=== PATIENT | female | born 2000 | race African-American/Black ===

== ENCOUNTER 2025-02-28 12:08 | Emergency (ER) | payer SELFPAY ==
--- OUTSIDE RECORDS SUMMARY | 2025-02-28 12:10 | XMS_ITS | Continuity of Care Document ---
Author Organization [facility] Address [address] [place] [phone] Phone Care Team Providers Care Composing Machine Operator Name Role Phone Faisal CRAMER/Annette NORRIS Unavailable Unavailable Allergies, Adverse Reactions, Alerts Substance Reaction Status Criticality No Known allergies Medications Medication Instructions Dosage Effective Dates (start - stop) Status Comments acetaminophen 160 mg/5 mL Elixir take 10 milliliter (320MG) by oral route every 6 hours as needed 320 MG - Active ibuprofen 100 mg/5 mL Oral Susp take 10 milliliter (200MG) by oral route every 6 hours as needed with food 200 MG - Active mls Procedures Procedure Date Medical Patient Not Seen Advance Directives Directive Yes / No Effective Date File Name No Information Encounters Encounter Description Practice Location Reason(s) For Visit Diagnoses Date Provider [facility] Blake [facility], [address] [place] [address], [id number], tel:[phone] [facility] No Information Faisal Bryant. [address] [place] [address], [id number], [place]. tel:[phone] Carter Blake [facility], [address] [place] [address], [id number], tel:[phone] [facility] sore throat (chief complaint) Streptococcal sore throat Adri Plascencia. [address] [place] [address], [id number], [place]. tel:[phone] Carter Blake [facility], [address] [place] [address], [id number], [place] tel:[phone] [facility] follow up labs/diagno stic testing (chief complaint) Lump or mass in breastACUTE PAIN NEC Faisal Bryant. [address] [place] [address], [id number], [place]. tel:[phone] Carter Blake [facility], [address] [place] [address], [id number], [place] tel:[phone] [facility] knot on chest (chief complaint) Lump or mass in breast Mannie Astudillo . [address] [place] [address], [id number], [place]. tel:[phone] Family History Family Member Type Diagnosis Age At Onset Mother Problem (finding) asthma Problem (finding) Family history of hyper tension Sister Problem (finding) asthma Problem (finding) Family history of Diabe char mellitus Payers Payer name Insurance type Covered green party ID Authoriza tion(s) No Information Social History Type Description Quantity Date Captured Comments Sex Female Smoking Status No Information Chief Complaint And Reason For Visit No Information History Of Present Illness Encounter Date Complaint History Of Prese nt Illness No Information Instructions Date Instruction Additional Infor sarah Order consults Call if symptoms persist Assessments Type Assessment Date No Information
--- OUTSIDE RECORDS SUMMARY | 2025-02-28 12:10 | XMS_ITS | Clinical Summary ---
Author Organization [facility] Address [address] [place] [id number] Care Team Providers Care Metal Miner Name Role Phone None, Provider MD Primary Care Provider Unavaila ble Allergies No known active allergies Medications buPROPion XL 150 MG 24 hr tablet Take 150 mg by mouth daily. 05/23/2021 Active Vit-Fe Fumarate-FA ( VITAMIN) 27-0.8 MG Tab Take 1 tablet by mouth daily. 90 tablet 3 09/09/2021 Active Active Problems Comments Yes No known active problems Family History Medical History Relation Comments Asthma Father Asthma Mother Relation Status Comments Father Alive Mother Alive Social History Tobacco Use Types Packs/Day Years Used Date Smoking Tobacco: Never Smokeless Tobacco: Never Alcohol Use Standard Drinks/Week Comments Not Currently 0 (1 standard drink = 0.6 oz pur e alcohol) Comments Yes Sex and Gender Information Value Date Recorded Sex Assigned at Not on file Legal Sex Female 6:47 PM CDT Gender Identity Not on file Sexual Orientation Not on file Last Filed Vital Signs Vital Sign Reading Time Taken Comments Blood Pressure 124/61 09/11/2021 12:10 PM PROMOTIONS COORDINATOR Pulse 58 09/11/2021 12:10 PM PROMOTIONS COORDINATOR Temperature 37.3 C (99.2 F) 09/11/2021 12:10 PM PROMOTIONS COORDINATOR Respiratory Rate 18 09/11/2021 12:10 PM PROMOTIONS COORDINATOR Oxygen Saturation 100% 09/11/2021 12:10 PM PROMOTIONS COORDINATOR Inhaled Oxygen Concentration - - Weight 57 kg (125 lb 10.6 oz) 09/08/2021 8:38 PM PROMOTIONS COORDINATOR Height 168.9 cm (5' 6.5 ) 09/08/2021 8:38 PM PROMOTIONS COORDINATOR Body Mass Index 19.98 09/08/2021 8:38 PM PROMOTIONS COORDINATOR Plan of Treatment Health Maintenance Due Date Last Done Comments Cervical Cancer Screening Pap Smear (Age 21 to 29) Every 3 Years 2001 Cervical Cancer Screening 2001 Annual Physical 2004 DTaP, Tdap and Td Vaccines (5 - Tdap) 2012 04/13/2003, 03/22/2002, 01/20/2002, Additional history exists Meningococcal B Vaccine (1 of 2 - Standard) 2017 Hepatitis C 2019 Hepatitis B Vaccines (1 of 3 - 19+ 3-dose series) 2020 COVID-19 Vaccine (1 - 2023-25 season) 2024 RSV Immunization or 60+ Years (1 - 1-dose 75+ series) 2076 HPV Vaccines Completed 07/11/2015, 06/20, 06/01/2013 Pneumococcal Vaccine: Pediatrics (0 to 5 Years) and At-Risk Patients (6 to 49 Years) Aged Out 11/07/2015, 09/05/2015 No longer eligibl e based on patient's age to complete this topic Meningococcal Vaccine Completed 01/28/2018 RSV Immunizations Under 20 Months Aged Out No longer eligible based on patient's age to complete this topic Insurance MERIDIAN MERIDIAN Care Teams Metal Miner Relationship Specialty Start Date End Date None, Provider, PCP - General 07/07/21
[2025-02-28 13:28] VITALS: BP 132/77; PULSE 56; RESP 18; TEMP 36.7; O2SAT 100
--- NOTE | 2025-02-28 13:31 | ECG_ITS ---
Test Date: 2025-02-28 15:05:51 Measurements Intervals [place] Rate: 48 P: 48 [place]: 138 QRS: 63 QRSD: 88 T: 36 QT: 451 QTc: 406 Interpretive Statements SINUS BRADYCARDIA NONSPECIFIC T WAVE ABNORMALITY No previous ECG available for comparison Electronically Signed On 02-28-2025 15:09:29 CDT by Manny Calix M.D.
--- NOTE | 2025-02-28 13:31 | ED_ITS ---
HPI - Female Genitourinary General Chief complaint: Vaginal Bleeding <Tiara Arzola PA-C - Last Filed: 02/28/25 13:33> Stated complaint: heavy vaginal bleeding <Tiara Arzola PA-C - Last Filed: 02/28/25 13:33> Time Seen by Provider: 02/28/25 14:17 <Tiara Arzola PA-C - Last Filed: 02/28/25 13:33> Focused HPI: 24-year-old female presents emergency department for abnormal uterine bleeding for the past 2 days. Patient states the 1st day of her last period was 02/17/2025 and lasted until 02/21/2025. She states her period was normal and on time. She then stopped bleeding and began bleeding again 2 days ago which is abnormal. Last night around 7:00 p.m. she started having increase in bleeding and has had a change her pad /tampon twice every hours since. She is now feeling lightheaded when she goes from sitting to standing position. She reports lower abdominal cramping. Denies history of irregular periods, possibility of , fever, vomiting, vaginal discharge or concern for STDs. She was approximately 2-3 years ago and had a miscarriage. Her OBGYN is Dr. Ro. GENERAL: Well-appearing, well-nourished, and in no acute distress. HEAD: Normocephalic, atraumatic. CHEST: Clear to auscultation. ?No respiratory distress. HEART: Regular rate and rhythm.? NEURO: ?Alert and oriented x3. Patient screened in triage and initial orders placed.? ?Additional care and disposition to be based upon?diagnostic testing and treatment. <Tiara Arzola PA-C - Last Filed: 02/28/25 13:33> History of Present Illness HPI Narrative: Agree with HPI. Reports sexually active with another female. Last activity several days ago. No penetration that could have caused laceration or other injury. Would like to have STI testing performed. No discharge. <Adalberto Coreas MD - Last Filed: 02/28/25 16:07> Related Data Allergies/Adverse reactions: Allergies Allergy/AdvReac Type Severity Reaction Status Date / Time No Known Allergies Allergy Unverified 10/29/16 08:29 <Tiara Arzola PA-C - Last Filed: 02/28/25 13:33> Review of Systems 2 Review of Systems: All systems reviewed & are unremarkable except as noted in HPI and below <Adalbetro Coreas MD - Last Filed: 02/28/25 16:07> Constitutional: Constitutional: Reports no additional constitutional complaints <Adalberto Coreas MD - Last Filed: 02/28/25 16:07> Cardiovascular: Cardiovascular: Reports no additional cardiovascular complaints <Adalberto Coreas MD - Last Filed: 02/28/25 16:07> Respiratory: Respiratory: Reports no additional respiratory complaints < Adalberto Coreas MD - Last Filed: 02/28/25 16:07> Gastrointestinal: Gastrointestinal: Reports no additional gastrointestinal complaints <Adalberto Coreas MD - Last Filed: 02/28/25 16:07> Genitourinary: Genitourinary: Reports no additional female genitourinary complaints <Adalberto Coreas MD - Last Filed: 02/28/25 16:07> [facility] Past Medical History Medical History: Medical History (Updated 02/28/25 @ 16:06 by Adalberto Coreas MD) Healthy female adult <Tiara Arzola PA-C - Last Filed: 02/28/25 13:33> Surgical History Surgical History: Surgical History (Updated 02/28/25 @ 16:04 by Adalberto Coreas MD) No pertinent past surgical history <Tiara Arzola PA-C - Last Filed: 02/28/25 13:33> Exam 2 Narrative: GENERAL: Well-appearing, well-nourished, and in no acute distress. HEAD: Normocephalic, atraumatic. ENT: Mucous membranes moist. CHEST: Clear to auscultation. No respiratory distress. HEART: Regular rate and rhythm. Normal peripheral pulses. ABDOMEN: Soft, nontender, nondistended : Normal external genitalia, mild amount of blood within the vault of the vagina with small clots. Once cleared no hemorrhage from the cervix. Cervix nonfriable. No discharge. EXTREMITIES: Normal range of motion. No edema. SKIN: Warm, dry, no rash. NEURO: Alert and oriented x3. PSYCH: Normal mood and affect. <Adalberto Coreas MD - Last Filed: 02/28/25 16:07> Course Course Emergency Course: Discussed diagnosis of dysfunctional uterine bleeding. Recommend follow- up with Gynecology. She has scheduled appointment with Dr. Lr office. STI testing sent and she can follow up online or at the Gynecology office. < Adalberto Coreas MD - Last Filed: 02/28/25 16:07> Vital Signs Vital signs: Vital Signs Temperature 98.0 F 02/28/25 13:28 Pulse Rate 56 L 02/28/25 13:28 Respiratory Rate 18 02/28/25 13:28 Blood Pressure 132/77 02/28/25 13:28 Pulse Oximetry 100 02/28/25 13:28 Oxygen Delivery Room Air 02/28/25 13:28 Temperature 98.0 F 02/28/25 13:28 Pulse Rate 59 L 02/28/25 14:32 Respiratory Rate 18 02/28/25 13:28 Blood Pressure 121/63 02/28/25 14:32 Pulse Oximetry 100 02/28/25 13:28 Oxygen Delivery Room Air 02/28/25 13:28 <Tiara Arzola PA-C - Last Filed: 02/28/25 13:33> Vital Signs Temperature 98.0 F 02/28/25 13:28 Pulse Rate 56 L 02/28/25 13:28 Respiratory Rate 18 02/28/25 13:28 Blood Pressure 132/77 02/28/25 13:28 Pulse Oximetry 100 02/28/25 13:28 Oxygen Delivery Room Air 02/28/25 13:28 Temperature 98.0 F 02/28/25 13:28 Pulse Rate 59 L 02/28/25 14:32 Respiratory Rate 18 02/28/25 13:28 Blood Pressure 121/63 02/28/25 14:32 Pulse Oximetry 100 02/28/25 13:28 Oxygen Delivery Room Air 02/28/25 13:28 <Adalberto Coreas MD - Last Filed: 02/28/25 16:07> MDM - Female Genitourinary Lab Data Result diagrams: 02/28/25 13:48 02/28/25 13:48 <Tiara Arzola PA-C - Last Filed: 02/28/25 13:33> Labs: Lab Results 02/28/25 02/28/25 02/28/25 Range/Units 13:48 13:51 15:41 WBC 6.9 (4.5-10.0) K/mm3 RBC 3.93 L (4.2-5.4) M/mm3 Hgb 11.8 L (12.0-15.0) g/dL Hct 37.3 (37.0-47.0) % MCV 94.9 (80-100) fl MCH 30.0 (26-34) pg MCHC 31.6 L (32-36) g/dl RDW 13.0 (11.5-14.5) % Plt Count 189 (150-375) k/mm3 MPV 10.4 (7.4-10.4) fl Immature Gran % (Auto) 0.1 (0-0.5) % Neut % (Auto) 72.5 (45.5-73.1) % Lymph % (Auto) 22.4 (18.3-44.2) % Levy % (Auto) 4.4 (2.6-8.5) % Eos % (Auto) 0.3 (0-4.4) % Baso % (Auto) 0.3 (0.2-1.2) % Lymph # (Auto) 1.54 (0.9-3.2) K/mm3 Levy # (Auto) 0.3 (0.1-0.6) K/mm3 Eos # (Auto) 0.0 (0-0.3) K/mm3 Baso # (Auto) 0.0 (0.0-0.1) K/mm3 Abs Immat Gran (auto) 0.01 (0.00-0.031) K/mm3 Absolute Neuts (auto) 5.0 (1.3-6.7) K/mm3 Absolute Nucleated RBC 0.000 (0.0-0.012) K/mm3 Nucleated RBC % 0.0 (0.0-0.2) % PT 13.0 (11.1-14.7) Seconds INR 1.0 APTT 29.3 (22.3-36.8) Seconds Sodium 138 (137-145) mmol/L Potassium 3.9 (3.4-5.0) mmol/L Chloride 106 (98-107) mmol/L Carbon Dioxide 26 (22-30) mmol/L Anion Gap 6 (4-12) mmol/L BUN 5 L (7-17) mg/dL Creatinine 0.65 L (0.7-1.0) mg/dL Estim Creat Clear Calc 100 ml/min Estimated GFR > 60 (59 - ) Glucose 94 (65-110) mg/dL Calcium 9.0 (8.4-10.2) mg/dL Total Bilirubin 0.6 (0.2-1.3) mg/dL AST 29 (14-36) U/L ALT 12 (6-35) U/L Alkaline Phosphatase 47 (38-126) U/L Total Protein 8.0 (6.3-8.2) g/dL Albumin 4.5 (3.5-5.1) g/dL TSH (Reflex) 1.940 (0.465-4.68) uIU/mL Urine Color Yellow (Yellow) Urine Appearance Clear (Clear) Urine pH 6.5 (5.0-9.0) Ur Specific Nada 1.016 (1.001-1.035) Urine Protein Negative (Negative) mg/dL Urine Glucose (UA) Negative (Negative) mg/dL Urine Ketones Negative (Negative) mg/dL Ur Blood (Man) 1+ H (Negative) Urine Nitrate Negative (Negative) Urine Bilirubin Negative (Negative) Urine Urobilinogen 0.2 (<2.0) mg/dL Leukocyte Esterase Rfl Negative (Negative) MARCIN/UL Urine RBC 11-20 H (0-2) /hpf Urine WBC 0-5 (0-3) /hpf Ur Squamous Epith Cells None seen (Few) /hpf Urine Bacteria None seen /hpf Urine Casts 0-2 Urine Test Negative C. trachomatis (PCR) Pending N. gonorrhoeae (PCR) Pending T. vaginalis (PCR) Pending <Tiara Arzola PA-C - Last Filed: 02/28/25 13:33> Lab Results 02/28/25 02/28/25 02/28/25 Range/Units 13:48 13:51 15:41 WBC 6.9 (4.5-10.0) K/mm3 RBC 3.93 L (4.2-5.4) M/mm3 Hgb 11.8 L (12.0-15.0) g/dL Hct 37.3 (37.0-47.0) % MCV 94.9 (80-100) fl MCH 30.0 (26-34) pg MCHC 31.6 L (32-36) g/dl RDW 13.0 (11.5-14.5) % Plt Count 189 (150-375) k/mm3 MPV 10.4 (7.4-10.4) fl Immature Gran % (Auto) 0.1 (0-0.5) % Neut % (Auto) 72.5 (45.5-73.1) % Lymph % (Auto) 22.4 (18.3-44.2) % Levy % (Auto) 4.4 (2.6-8.5) % Eos % (Auto) 0.3 (0-4.4) % Baso % (Auto) 0.3 (0.2-1.2) % Lymph # (Auto) 1.54 (0.9-3.2) K/mm3 Levy # (Auto) 0.3 (0.1-0.6) K/mm3 Eos # (Auto) 0.0 (0-0.3) K/mm3 Baso # (Auto) 0.0 (0.0-0.1) K/mm3 Abs Immat Gran (auto) 0.01 (0.00-0.031) K/mm3 Absolute Neuts (auto) 5.0 (1.3-6.7) K/mm3 Absolute Nucleated RBC 0.000 (0.0-0.012) K/mm3 Nucleated RBC % 0.0 (0.0-0.2) % PT 13.0 (11.1-14.7) Seconds INR 1.0 APTT 29.3 (22.3-36.8) Seconds Sodium 138 (137-145) mmol/L Potassium 3.9 (3.4-5.0) mmol/L Chloride 106 (98-107) mmol/L Carbon Dioxide 26 (22-30) mmol/L Anion Gap 6 (4-12) mmol/L BUN 5 L (7-17) mg/dL Creatinine 0.65 L (0.7-1.0) mg/dL Estim Creat Clear Calc 100 ml/min Estimated GFR > 60 (59 - ) Glucose 94 (65-110) mg/dL Calcium 9.0 (8.4-10.2) mg/dL Total Bilirubin 0.6 (0.2-1.3) mg/dL AST 29 (14-36) U/L ALT 12 (6-35) U/L Alkaline Phosphatase 47 (38-126) U/L Total Protein 8.0 (6.3-8.2) g/dL Albumin 4.5 (3.5-5.1) g/dL TSH (Reflex) 1.940 (0.465-4.68) uIU/mL Urine Color Yellow (Yellow) Urine Appearance Clear (Clear) Urine pH 6.5 (5.0-9.0) Ur Specific Nada 1.016 (1.001-1.035) Urine Protein Negative (Negative) mg/dL Urine Glucose (UA) Negative (Negative) mg/dL Urine Ketones Negative (Negative) mg/dL Ur Blood (Man) 1+ H (Negative) Urine Nitrate Negative (Negative) Urine Bilirubin Negative (Negative) Urine Urobilinogen 0.2 (<2.0) mg/dL Leukocyte Esterase Rfl Negative (Negative) MARCIN/UL Urine RBC 11-20 H (0-2) /hpf Urine WBC 0-5 (0-3) /hpf Ur Squamous Epith Cells None seen (Few) /hpf Urine Bacteria None seen /hpf Urine Casts 0-2 Urine Test Negative C. trachomatis (PCR) Pending N. gonorrhoeae (PCR) Pending T. vaginalis (PCR) Pending <Adalberto Coreas MD - Last Filed: 02/28/25 16:07> Discharge Plan Discharge Clinical Impression: Dysfunctional uterine bleeding <Tiara Arzola PA-C - Last Filed: 02/28/25 13:33> Patient Disposition: Home <Tiara Arzola PA-C - Last Filed: 02/28/25 13:33> Condition: Stable <Taira Arzola PA-C - Last Filed: 02/28/25 13:33> Instructions: Abnormal (Dysfunctional) Uterine Bleeding (ED) <Tiara Arzola PA-C - Last Filed: 02/28/25 13:33> Additional Instructions: Return to the emergency department if you develop severe abdominal pain, severe nausea and vomiting to the point where you are unable to keep down fluids, if you develop chest pain or difficulty breathing, blood in your stool, dizziness or fainting, or if you develop any other new or concerning symptoms as these could be signs of more serious medical illness. Try to stay well hydrated. <Tiara Arzola PA-C - Last Filed: 02/28/25 13:33> Patient Language: Albanian <Tiara Arzola PA-C - Last Filed: 02/28/25 13:33> Prescriptions: New ibuprofen 600 mg tablet 600 mg PO TID Qty: 20 0RF <Tiara Arzola PA-C - Last Filed: 02/28/25 13:33> Follow-up/Referrals: Deanna Ro MD [Physician] - 1 Week PHYSICIAN,CARD SELLER [Non-Staff] - <Tiara Arzola PA-C - Last Filed: 02/28/25 13:33>
[2025-02-28 13:59] LABS: Basophils Percent Auto 0.3 % (0.2-1.2); Eosinophils Percent Auto 0.3 % (0-4.4); Hematocrit 37.3 % (37.0-47.0); Hemoglobin 11.8 g/dL (12.0-15.0); Immature Granulocyte Absolute 0.01 K/mm3 (0.00-0.031); Immature Granulocyte Percent A 0.1 % (0-0.5); Lymphocytes Absolute Auto 1.54 K/mm3 (0.9-3.2); Lymphocytes Percent Auto 22.4 % (18.3-44.2); Mean Corpuscular HGB Conc 31.6 g/dl (32-36); Mean Corpuscular Volume 94.9 fl (80-100); Mean Platelet Volume 10.4 fl (7.4-10.4); Monocytes Absolute Auto 0.3 K/mm3 (0.1-0.6); Monocytes Percent Auto 4.4 % (2.6-8.5); Neutrophils Percent Auto 72.5 % (45.5-73.1); Platelet Count Result 189 k/mm3 (150-375); Red Blood Count 3.93 M/mm3 (4.2-5.4); White Blood Count 6.9 K/mm3 (4.5-10.0)
[2025-02-28 14:05] LABS: Add Urine Microscopic? YES; Appearance Urine Clear (Clear); Bacteria Urine None Seen /hpf; Bilirubin Urine Negative (Negative); Blood Urine 1+ (Negative); Color Urine Yellow (Yellow); Glucose Urine UA Negative (Negative); Ketones Urine Negative (Negative); Leukocyte Esterase Ur Negative LEU/UL (Negative); Nitrate Urine Negative (Negative); Non Pathogenic Casts 0-2; Protein Urine Negative (Negative); Specific Grav Ur 1.016 (1.001-1.035); Squamous Epithelial Cell Urine None Seen /hpf (Few); Urobilinogen Urine 0.2 mg/dL (<2.0); WBC Urine 0-5 /hpf (0-3); pH Urine 6.5 (5.0-9.0)
[2025-02-28 14:10] LABS: Partial Thromboplastin Time 29.3 Seconds (22.3-36.8)
--- NOTE | 2025-02-28 14:13 | PC.NURSE ---
Unable to complete bedside test d/t urine already sent down to lab.
--- NOTE | 2025-02-28 14:19 | PC.NURSE ---
Lab called to add on urine preg.
[2025-02-28 14:26] LABS: Pregnancy On Board Control Positive; Urine Pregnancy Test Negative
[2025-02-28 14:30] VITALS: BP 110/57; PULSE 50
[2025-02-28 14:30] LABS: Alanine Aminotransferase 12 U/L (6-35); Albumin Level 4.5 g/dL (3.5-5.1); Alkaline Phosphatase 47 U/L (38-126); Anion Gap 6 mmol/L (4-12); Aspartate Amino Transferase 29 U/L (14-36); Bilirubin,Total 0.6 mg/dL (0.2-1.3); Blood Urea Nitrogen 5 mg/dL (7-17); Carbon Dioxide 26 mmol/L (22-30); Chloride 106 mmol/L (98-107); Estimated CRCL calculation 100 ml/min; Estimated Glomerular Filt Rate > 60; Glucose 94 mg/dL (65-110); Potassium 3.9 mmol/L (3.4-5.0); Sodium 138 mmol/L (137-145)
[2025-02-28 14:31] VITALS: BP 114/65; PULSE 52
[2025-02-28 14:32] VITALS: BP 121/63; PULSE 59
[2025-02-28] MEDS: SODIUM CHLORIDE 0.9% IV 1,000 ML 999 ML IV CONT (14:33)
--- OUTSIDE RECORDS SUMMARY | 2025-02-28 14:58 | XMS_ITS | Continuity of Care Document ---
Author Organization [facility] Address [address] [place] [phone] Phone Care Team Providers Care Custodial Services Manager Name Role Phone Faisal CRAMER/Annette NORRIS Unavailable [...] For Visit Diagnoses Date Provider Carter Blake [facility], [address] [place] [address], [id number], tel:[phone] [facility] No Information Faisal Bryant. [address] [place] [address], [id number], [place]. tel:[phone] Carter Blake [facility], [address] [place] [address], [id number], tel:[phone] [facility] sore throat (chief complaint) Streptococcal sore throat Adri Plascencia. [address] [place] [address], [id number], [place]. tel:[phone] Carter Blake [facility], [address] [place] [address], [id number], [place] tel:[phone] [facility] follow up labs/diagno stic testing (chief complaint) Lump or mass in breastACUTE PAIN NEC Faisal Bryant. [address] [place] [address], [id number], [place]. tel:[phone] Carter Blake [facility], [address] [place] [address], [id number], [place] tel:[phone] [facility] knot on chest (chief complaint) Lump or mass in breast Mannie Astudillo . [address] [place] [address], [id number], [place]. tel:[phone] Family History Family Member Type Diagnosis Age At Onset Mother Problem (finding) asthma Problem (finding) Family history of hyper tension Sister Problem (finding) asthma Problem (finding) Family history of Diabe char mellitus Payers Payer name Insurance type Covered constitution party ID Authoriza tion(s) No Information Social [...]
[2025-02-28 16:59] LABS: Trichomonas Vag PCR NOT DETECTED (NOT DETECTE)
[2025-02-28 17:22] LABS: Chlamydia trachomatis NOT DETECTED (NOT DETECTE); Neisseria gonorrhoeae PCR NOT DETECTED (NOT DETECTE)
== END 2025-02-28 16:16 | disposition home or self-care (01) ==
PROVIDERS: Emergency Medicine; Physician Assistant; Emergency Provider Emergency Medicine
DX: N93.8 Other specified abnormal uterine and vaginal bleeding (principal)
CPT/HCPCS: 36415; 80053; 81001; 81025; 84443; 85025; 85610; 85730; 87491; 87591; 87661; 93005; 96360; 99283; J7030

== ENCOUNTER 2025-04-28 11:12 | Emergency (ER) | payer MEDICAID, SELFPAY ==
[2025-04-28 11:22] VITALS: BP 109/73; PULSE 56; RESP 16; TEMP 36.4; O2SAT 100
[2025-04-28 11:36] LABS: EDSTREPNEGPOS1 Negative (Negative)
--- NOTE | 2025-04-28 11:38 | ED_ITS ---
HPI - URI/Sore Throat General Chief Complaint: Upper Respiratory Infection Stated Complaint: Strep Symptoms Time Seen by Provider: 04/28/25 11:30 Source: patient and RN notes reviewed Mode of arrival: ambulatory Limitations: no limitations History of Present Illness HPI Narrative: Patient presents today with a 4 day history of sore throat, nasal congestion, headache, productive cough. Reports she did have fever up to 101 and shortness of breath but these symptoms have since resolved. Denies difficulty swallowing. She has tried Tylenol and NyQuil with some relief. Friend sick with similar symptoms. Related Data Home Medications ?Medication ?Instructions ?Recorded ?Confirmed ?Last Taken ?Type No Home Medications 04/28/25 04/28/25 Unknown History Allergies Allergy/AdvReac Type Severity Reaction Status Date / Time No Known Allergies Allergy Unverified 04/28/25 11:17 [facility] Past Medical History Medical History Healthy female adult Surgical History Surgical History No pertinent past surgical history Comments At time of signature, I have reviewed and agree with nursing past medical, surgical, social and family history unless otherwise noted. Please see nursing chart for further information. There is no relevant family history pertinent to the presenting complaint Exam Narrative: GENERAL: Well-appearing, well-nourished, and in no acute distress. HEAD: Normocephalic, atraumatic. EYES: EOMI. No redness or drainage. Conjunctivae normal. ENT: Mucous membranes pink and moist. Nares clear. No rhinorrhea. TMs normal bilaterally. Throat mildly erythematous without edema or exudate Uvula midline. NECK: Normal AROM. Supple. No lymphadenopathy. CHEST: No respiratory distress. Clear to auscultation. HEART: Regular rate and rhythm. No murmur appreciated. EXTREMITIES: Normal range of motion. No edema. SKIN: Warm, dry, no rash. Capillary refill normal. Normal skin turgor. NEURO: No focal deficits. Alert and oriented x3. Gait steady. PSYCH: Normal affect. No signs of depression or anxiety. Course Course Level of Care: Express Care Visit Vital Signs Vital signs: Vital Signs Temperature 97.5 F L 04/28/25 11:22 Pulse Rate 56 L 04/28/25 11:22 Respiratory Rate 16 04/28/25 11:22 Blood Pressure 109/73 04/28/25 11:22 Pulse Oximetry 100 04/28/25 11:22 Temperature 97.5 F L 04/28/25 11:22 Pulse Rate 56 L 04/28/25 11:22 Respiratory Rate 16 04/28/25 11:22 Blood Pressure 109/73 04/28/25 11:22 Pulse Oximetry 100 04/28/25 11:22 Reviewed MDM - URI/Sore Throat MDM Narrative Medical decision making narrative: 24-year-old female patient presents with upper respiratory symptoms. Fever and shortness of breath of since resolved prior to arrival. [id number] medications have been helpful. No history of asthma. Patient does smoke. Rapid strep negative, culture pending. Symptoms likely viral in etiology. Discussed continuing [id number] medication. Discussed normal timeline of illness. Recommend continuing OTC medication, rest until full resolution. Patient agrees with plan. Anticipatory guidance given. Differential Diagnosis Differential diagnosis: Likely upper respiratory infection, sinusitis, viral infection, bronchitis, pharyngitis and other (Strep throat) Lab Data Attestation: I reviewed the patient's lab results. Labs: Lab Results 04/28/25 Range/Units 11:34 POC Grp A Strep Screen Negative (Negative) Critical Care Time Critical Care Time Critical Care Time: No Discharge Plan Discharge Clinical Impression: Upper respiratory infection Qualifiers: URI type: unspecified URI Qualified Code(s): J06.9 - Acute upper respiratory infection, unspecified Patient Disposition: Home Condition: Stable Instructions: Upper Respiratory Infection (DC) Additional Instructions: Your rapid strep swab was negative today at [facility]. You will be notified in a few days if the culture comes back positive for strep, and appropriate antibiotics will be called in for you at that time. Your symptoms are likely due to a viral illness, which is not treated with antibiotics. Viral symptoms can be present for up to 7-10 days. Take Tylenol or ibuprofen for fever or pain. Rest and stay hydrated. Follow up with your PCP in 7 days if symptoms are not improving. Go to the ER immediately if you have any difficulty breathing or swallowing. Patient Language: Norwegian Prescriptions: No Action No Home Medications Follow-up/Referrals: PHYSICIAN,GRAIN DRIER OPERATOR [Primary Care Provider] - Time of Disposition: 11:42
== END 2025-04-28 11:44 | disposition home or self-care (01) ==
PROVIDERS: Emergency Provider Nurse Practitioner
DX: J06.9 Acute upper respiratory infection, unspecified (principal)
CPT/HCPCS: 87081; 87880; 99212; G0463